=== PATIENT | female | born 1980 | race Two or more races ===

== ENCOUNTER 2023-11-21 11:16 | Day surgery (SDC) | payer SELFPAY ==
[2023-11-21] VITALS (10 sets, daily range): BP systolic 128–139; BP diastolic 79–98; PULSE 60–94; RESP 12–17; TEMP 36.3; O2SAT 99–100; BMI 22.7
[2023-11-21] MEDS: LACTATED RINGER'S SOLUTION 1,000 ML 50 ML IV (12:30)
[2023-11-21 12:32] LABS: HCG Qualitative NEGATIVE (NEGATIVE)
[2023-11-21] MEDS: CEFAZOLIN SODIUM/DEXTROSE,ISO 1 GM/50 ML IV.SOLN IV (12:43)
[2023-11-21] MEDS: LEVOFLOXACIN IN DEXTROSE 5 % 500 MG/100 ML PIGGYBACK 100 MG IV (13:00)
[2023-11-21] MEDS: IOHEXOL 240 MG/ML - 10 ML VIAL INJ (13:14)
[2023-11-21] MEDS: IOHEXOL 300 MG/ML - 50 ML BTL INJ (13:19)
--- NOTE | 2023-11-21 13:37 | PM.URSON ---
Urology Surgery Operative Note Operative Note Procedure Date: 11/21/23 Time Out Performed: yes Pre-op Diagnosis: Left ureteral calculus; left flank pain Post-op Diagnosis: other (Same plus passed left ureteral calculus and left ureteral stenosis) Procedures performed: 1. Cystoscopy. 2. Bilateral retrograde pyelogram. 3. Left rigid ureteral dilation. 4. Left ureteroscopy. 5. Left pyeloscopy. Anesthesia: General-LMA Primary Surgeon: George Shultz Complications: None Estimated blood loss (mL): 5 Findings: 1. Distal left ureteral stenosis. 2. Passed left ureteral calculus. Specimens: None Indications for Procedures: This lady had a 5 mm in the left ureteral calculus for which she went to the ER on 2 different occasions. She is still having flank pain and some healing. She states that she did not pass the stone. She is strongly desirous for ureteroscopic stone manipulation and possible stent placement. She has signed an informed consent after risks were explained. Detailed description of Procedure: The patient was brought to the operating room and placed on the operating room table in the supine position. SCDs were placed on the lower extremities and turned on and functioning during the entire case. Timeout was done by all parties in the room. We all agreed upon the patient's identification and the planned procedures for this patient. Genn. anesthesia was then administered. The patient was then repositioned into the modified dorsal lithotomy position. All pressure points were satisfactorily padded. Genitalia were sterilely prepped and draped in usual fashion. I started by passing a 22 Armenian Olympus cystoscope per urethra and into the bladder. Panendoscopy in the bladder showed no evidence of any stones tumors or foreign bodies. While using fluoroscopy it appeared as though there may be a stone over the mid to proximal left sacral ureter area. I then passed a Glidewire through the scope and up the left ureter and some cloudy debris came out of the ureter. I then used an 8 and 10 Armenian rigid dilator to dilate the distal ureter. The distal ureter was rather stenosed. I then removed the cystoscope and then passed a semirigid ureteroscope over the wire and up the ureter. To my surprise, there was no evidence of any stone. I scoped up to the UPJ and back. The scope was removed. An open-ended ureteral catheter was passed over the wire into the ureter and the wire was removed. I then injected contrast in a retrograde manner through the catheter and found no evidence of any filling defect within the kidney except at the UPJ. I then passed the wire back up the catheter and removed the catheter. I then passed a flexible ureteroscope over the wire up the ureter and remove the wire. I then entered the kidney and found no evidence of a renal pelvis stone. I went into all the calyces in the upper middle and lower poles and found no evidence of stone. I then slowly removed the ureteroscope. I then passed the cystoscope back in the bladder and did a right retrograde pyelogram and this was unremarkable. This was done because she was complaining of right flank pain also in preop. I elected not to place a stent on the left. The bladder was drained of its contents and the scope was then removed. She was then transferred to a [facility] bed and wheeled to PACU in stable condition.
--- NOTE | 2023-11-21 14:59 | PC.NURSE ---
Patient states she understands what happened and that the Dr's Office will call them next week for a follow up.
== END 2023-11-21 14:46 | disposition home or self-care (01) ==
PROVIDERS: Visit Provider Urology
PROC: (CPT 910; principal; 2023-11-21 12:00)
DX: N20.1 Calculus of ureter (principal); Q62.10 Congenital occlusion of ureter, unspecified
CPT/HCPCS: 52344; 36415; 74420; 84703; J1094; J2704; Q9966; Q9967